=== PATIENT | male | born 1945 | race Caucasian/White ===

== ENCOUNTER 2017-01-17 12:11 | Emergency (ER) | payer MEDICARE, OTHER ==
[~2017-01-17] VITALS: Ht 177.8 cm; Wt 117.3 kg
[2017-01-17 12:16] VITALS: TEMP 97.8
[2017-01-17 13:02] LABS: INR 1.1 (0.8-3.0); PROTHROMBIN TIME 12.6 SECONDS (9.7-12.8)
[2017-01-17 13:04] LABS: PARTIAL THROMBOPLASTIN TIME 33.2 SECONDS (26.0-37.0)
[2017-01-17] MEDS ORDERED: PROSTATE MEDICATION (13:12)
[2017-01-17 13:31] LABS: HEMATOCRIT 39.6 % (42.0-52.0); HEMOGLOBIN 13.4 g/dl (13.5-18.0); MEAN CELL VOLUME 87 fl (80.0-100.0); MEAN CORPUSCULAR HEMOGLOBIN 29 pg (27.0-31.0); MEAN CORPUSCULAR HGB CONC 34 g/dl (33.0-37.0); MEAN PLATELET VOLUME 10.6 fl (7.4-10.4); PLATELET COUNT 232 K/mm3 (130-400); RED BLOOD COUNT 4.58 M/mm3 (4.20-5.60); REDCELL DISTRIBUTION WIDTH-CV 13.2 % (11.5-14.5); WHITE BLOOD COUNT 16.6 K/mm3 (4.8-10.8)
[2017-01-17 13:36] LABS: ADD PATHOLOGY DIFF REVIEW NO
[2017-01-17 13:37] LABS: ADJUSTED CALCIUM 9.1 mg/dL (8.4-10.2); ALBUMIN 3.6 gm/dL (3.5-5.0); BILIRUBIN,TOTAL 1.1 mg/dL (0.0-1.0); CALCIUM 8.8 mg/dL (8.4-10.2); CREATININE, serum 0.77 mg/dL (0.66-1.25); POTASSIUM 3.9 mmol/L (3.4-5.0); TOTAL PROTEIN 6.3 gm/dL (6.4-8.2)
[2017-01-17 13:52] LABS: TROPONIN-I 2.19 ng/mL (0.000-0.034)
[2017-01-17 14:17] LABS: BAND 4 % (0-10); NEUTROPHILS 65 % (42.0-75.2); PLATELET ESTIMATE NORMAL (NORMAL); TOTAL CELLS COUNTED 100
[2017-01-17 14:44] VITALS: BP 58/35; PULSE 80
== END 2017-01-17 14:45 | disposition expired ==
LOC: COL.ER 12:11
PROVIDERS: Emergency Medicine
DX: I21.09 ST elevation (STEMI) myocardial infarction involving other coronary artery of anterior wall (principal); R57.0 Cardiogenic shock
CPT/HCPCS: A4315; C1725; C1769; C1887; C1894; J0130; J0171; J1644; J3101; J7030; J7060; Q9967